=== PATIENT | male | born 1940 | race Caucasian/White ===

== ENCOUNTER 2020-09-07 07:58 | Day surgery (SDC) | payer OTHER ==
[~2020-09-07] VITALS: Ht 182.9 cm; Wt 98.1 kg
[~2020-09-07 07:58] MED LIST: ALOE VERA; ASCO500 PO; ASPI81EC PO; Aspir 8181 MG PO; B Complex1 EAC2 PO; CHOL10002 PO; FAMO20 PO; FLUT.05NI; Fergon240 M1 PO; TRAZ100 PO
== END 2020-09-07 09:59 | disposition home or self-care (01) ==
LOC: ORSCSDS 07:58
PROVIDERS: Internal Medicine Gastroenterology
PROC: 0DB58ZX Excision of Esophagus, Via Natural or Artificial Opening Endoscopic, Diagnostic (ICD-10-PCS; principal; 2020-09-07 09:15)
PROC: 0DB78ZX Excision of Stomach, Pylorus, Via Natural or Artificial Opening Endoscopic, Diagnostic (ICD-10-PCS; principal; 2020-09-07 09:15)
PROC: 0D758ZZ Dilation of Esophagus, Via Natural or Artificial Opening Endoscopic (ICD-10-PCS; principal; 2020-09-07 09:15)
DX: R13.10 Dysphagia, unspecified (principal); K21.9 Gastro-esophageal reflux disease without esophagitis; K22.10 Ulcer of esophagus without bleeding; K44.9 Diaphragmatic hernia without obstruction or gangrene; K22.2 Esophageal obstruction; K26.9 Duodenal ulcer, unspecified as acute or chronic, without hemorrhage or perforation; K20.80 Other esophagitis without bleeding; Z87.891 Personal history of nicotine dependence; Z79.899 Other long term (current) drug therapy; Z79.82 Long term (current) use of aspirin
CPT/HCPCS: 88305; 88342; C1726; J2704; J7120

== ENCOUNTER 2020-12-26 15:07 | Inpatient (IN) | payer OTHER ==
[~2020-12-26] VITALS: Ht 182.9 cm; Wt 95.2 kg
[2020-12-26 16:29] LABS: BASOPHILS ABSOLUTE AUTO 0.05 K/mm3 (0.00-0.23); BASOPHILS PERCENT AUTO 0 % (0-2); EOSINOPHILS ABSOLUTE AUTO 0.01 K/mm3 (0.00-0.68); EOSINOPHILS PERCENT AUTO 0 % (0-6); Hematocrit 44.2 % (37.0-53.0); Hemoglobin 14.6 g/dL (13.5-17.5); IMMATURE GRAN ABSOLUTE AUTO 0.47 K/mm3 (0.00-0.10); IMMATURE GRAN PERCENT AUTO 2 % (0-1); LYMPHOCYTES ABSOLUTE AUTO 0.86 K/mm3 (0.84-5.20); LYMPHOCYTES PERCENT AUTO 3 % (21-46); MONOCYTES ABSOLUTE AUTO 1.95 K/mm3 (0.16-1.47); MONOCYTES PERCENT AUTO 8 % (4-13); Mean Corpuscular HGB 31.5 pg (26.0-34.0); Mean Corpuscular Volume 96 fL (80-100); Mean Platelet Volume 10.4 fL (9.1-12.4); NEUTROPHILS ABSOLUTE AUTO 21.74 K/mm3 (1.96-9.15); NEUTROPHILS PERCENT AUTO 87 % (41-73); Platelet Count 160 K/mm3 (150-400); RDW Standard Deviation 49.3 fL (35.1-46.3); Red Blood Cell Count 4.63 M/mm3 (4.30-5.90); White Blood Cell Count 25.08 K/mm3 (4.00-11.30)
[2020-12-26 17:01] LABS: Albumin, Blood 2.9 g/dL (3.4-5.0); Albumin/Globulin Ratio 0.7 (0.8-1.8); Bun/Creatinine Ratio 12.2 (12.0-20.0); Calcium, Blood 8.8 mg/dL (8.5-10.1); Creatinine, Blood 1.39 mg/dL (0.60-1.20); Globulin, Blood 4.3 g/dL (2.2-4.0); Potassium, Blood 4.6 mmol/L (3.5-5.5); Total Protein, Blood 7.2 g/dL (6.4-8.2)
--- NOTE | 2020-12-27 04:08 | NUR ---
SHIFT SUMMARY ER ADMIT THIS SHIFT WITH CHOLECYSTITIS/PANCREATITIS. PT REPORTED MINIMAL ABD PAIN UPON ARRIVAL TO UNIT. ABD WAS TENDER TO TOUCH. DENIES N/V AND WAS MADE NPO. IVF + ABX PER ORDERS. USING URINAL TO VOID AT BEDSIDE. HAS RESTED WELL. CALL LIGHT WITHIN REACH.
[2020-12-27 06:41] LABS: BASOPHILS ABSOLUTE AUTO 0.04 K/mm3 (0.00-0.23); BASOPHILS PERCENT AUTO 0 % (0-2); EOSINOPHILS ABSOLUTE AUTO 0.05 K/mm3 (0.00-0.68); EOSINOPHILS PERCENT AUTO 0 % (0-6); Hematocrit 38.5 % (37.0-53.0); Hemoglobin 12.9 g/dL (13.5-17.5); IMMATURE GRAN ABSOLUTE AUTO 0.19 K/mm3 (0.00-0.10); IMMATURE GRAN PERCENT AUTO 1 % (0-1); LYMPHOCYTES ABSOLUTE AUTO 0.76 K/mm3 (0.84-5.20); LYMPHOCYTES PERCENT AUTO 4 % (21-46); MONOCYTES ABSOLUTE AUTO 1.56 K/mm3 (0.16-1.47); MONOCYTES PERCENT AUTO 8 % (4-13); Mean Corpuscular HGB 31.5 pg (26.0-34.0); Mean Corpuscular HGB Conc 33.5 g/dL (31.5-36.5); Mean Corpuscular Volume 94 fL (80-100); Mean Platelet Volume 10.4 fL (9.1-12.4); NEUTROPHILS ABSOLUTE AUTO 18.13 K/mm3 (1.96-9.15); NEUTROPHILS PERCENT AUTO 88 % (41-73); Platelet Count 141 K/mm3 (150-400); RDW Coefficient Variation 14.1 % (11.7-14.2); RDW Standard Deviation 48.7 fL (35.1-46.3); Red Blood Cell Count 4.09 M/mm3 (4.30-5.90); White Blood Cell Count 20.73 K/mm3 (4.00-11.30)
[2020-12-27 06:59] LABS: Albumin, Blood 2.2 g/dL (3.4-5.0); Albumin/Globulin Ratio 0.6 (0.8-1.8); Bun/Creatinine Ratio 12.8 (12.0-20.0); Calcium, Blood 7.9 mg/dL (8.5-10.1); Creatinine, Blood 1.41 mg/dL (0.60-1.20); Globulin, Blood 3.9 g/dL (2.2-4.0); Potassium, Blood 4.3 mmol/L (3.5-5.5); Total Protein, Blood 6.1 g/dL (6.4-8.2)
--- NOTE | 2020-12-27 17:22 | NUR ---
IMAGING PT RECIEVED AN ECHO @ BEDSIDE. PT CURRENTLY BEING TRANSFERED TO IMAGING FOR CHEST XRAY VIA [facility].
--- NOTE | 2020-12-27 17:23 | NUR ---
SHIFT SUMMARY PT HAS BEEN A&O X4 AND IN PLEASENT MOOD T/O SHIFT. PT HAS BEEN SUFFERING FROM EXERTIONAL SOB T/O SHIFT, DENIED CHEST PAIN, TIGHTNESS, OR TINGLING. PT HAS BEEN RELAXING IN BED AND MAKING PHONE CALLS T/O DAY HOURS. CONSULT FOR [facility] PROVIDER COMPLETED, NEW ORDERS RECIEVED. COVID TEST, ECHO, CHEST XR COMPLETED.
[2020-12-27 17:29] LABS: SARS-Cov-2 (COVID-19) PCR, MMC NEGATIVE (NEGATIVE)
--- NOTE | 2020-12-28 04:19 | NUR ---
SHIFT SUMMARY PT RESTED WELL T/O SHIFT. PT CONT TO DENY THE NEED FOR PAIN MEDICATIONS. NPO SINCE MIDNIGHT. IVF INFUSING PER ORDERS. USING URINAL TO VOID. PT WAS FEBRILE AT START OF SHIFT, BUT TEMP HAS TRENDED DOWN. ENCOURAGING I/S USE + COUGH + DEEP BREATHING. TELE IN PLACE. USES CALL LIGHT APPROPRIATELY.
[2020-12-28 04:33] LABS: BASOPHILS ABSOLUTE AUTO 0.03 K/mm3 (0.00-0.23); BASOPHILS PERCENT AUTO 0 % (0-2); EOSINOPHILS ABSOLUTE AUTO 0.02 K/mm3 (0.00-0.68); EOSINOPHILS PERCENT AUTO 0 % (0-6); Hematocrit 35.3 % (37.0-53.0); IMMATURE GRAN PERCENT AUTO 1 % (0-1); LYMPHOCYTES ABSOLUTE AUTO 0.82 K/mm3 (0.84-5.20); LYMPHOCYTES PERCENT AUTO 5 % (21-46); MONOCYTES ABSOLUTE AUTO 1.44 K/mm3 (0.16-1.47); MONOCYTES PERCENT AUTO 9 % (4-13); Mean Corpuscular HGB 32.3 pg (26.0-34.0); Mean Corpuscular Volume 95 fL (80-100); Mean Platelet Volume 10.3 fL (9.1-12.4); NEUTROPHILS ABSOLUTE AUTO 14.36 K/mm3 (1.96-9.15); NEUTROPHILS PERCENT AUTO 85 % (41-73); Platelet Count 140 K/mm3 (150-400); RDW Coefficient Variation 14.2 % (11.7-14.2); RDW Standard Deviation 50.1 fL (35.1-46.3); Red Blood Cell Count 3.72 M/mm3 (4.30-5.90); White Blood Cell Count 16.87 K/mm3 (4.00-11.30)
[2020-12-28 04:55] LABS: Albumin, Blood 2.1 g/dL (3.4-5.0); Albumin/Globulin Ratio 0.5 (0.8-1.8); Bilirubin, Total 2.4 mg/dL (0.1-1.0); Bun/Creatinine Ratio 13.8 (12.0-20.0); Calcium, Blood 7.9 mg/dL (8.5-10.1); Creatinine, Blood 1.23 mg/dL (0.60-1.20); Globulin, Blood 3.9 g/dL (2.2-4.0); Potassium, Blood 3.8 mmol/L (3.5-5.5)
--- NOTE | 2020-12-28 15:13 | NUR ---
TRANSFER TO DAY SURG PT A&O X4. PT PRE SURG PACKET COMPLETE. 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
--- NOTE | 2020-12-28 16:59 | NUR ---
SHIFT SUMMARY PT A&O X4 AND IN PLEASENT MOOD THROUGHOUT SHIFT. PT C/O RUQ PAIN T/O MORNING HOURS OF SHIFT, MEDICATED PER EMAR. RESTING IN BED IN BETWEEN. NPO BEFORE TRANSFER TO SURG @ 1515. TELE SR @ 79. AWAITING PT TRANSFER BACK TO UNIT.
--- NOTE | 2020-12-28 17:15 | NUR ---
ADMIT: 12/26/20 DISCHARGE: TBD DX: CHOLECYSITIS CC: Shayna SANTANA NEXT OF KIN/CONTACT: KERRY CORREIA, - [phone] DME: NONE CCM: NONE HOME HEALTH PRIOR TO ADMIT: NONE Per chart review with Dr. Centeno this am, pt. likely to have lap lisa today. Echocardiogram completed this am. Pt. could potentially discharge within 24-48 hours. Plan to contact patient's tomorrow to provide updates and discuss discharge planning. No anticipated needs at this time other than F/U with PCP and specialist as indicated.
--- NOTE | 2020-12-28 18:45 | NUR ---
POST-OP REPORT RECIEVED MARISOL PROVIDED POST OP REPORT. AWAITING PT ARRIVAL TO UNIT.
[2020-12-29 04:56] LABS: BASOPHILS ABSOLUTE AUTO 0.01 K/mm3 (0.00-0.23); BASOPHILS PERCENT AUTO 0 % (0-2); EOSINOPHILS PERCENT AUTO 0 % (0-6); Hematocrit 34.3 % (37.0-53.0); Hemoglobin 11.4 g/dL (13.5-17.5); IMMATURE GRAN ABSOLUTE AUTO 0.07 K/mm3 (0.00-0.10); IMMATURE GRAN PERCENT AUTO 1 % (0-1); LYMPHOCYTES PERCENT AUTO 3 % (21-46); MONOCYTES ABSOLUTE AUTO 0.29 K/mm3 (0.16-1.47); MONOCYTES PERCENT AUTO 3 % (4-13); Mean Corpuscular HGB 31.6 pg (26.0-34.0); Mean Corpuscular HGB Conc 33.2 g/dL (31.5-36.5); Mean Corpuscular Volume 95 fL (80-100); Mean Platelet Volume 10.4 fL (9.1-12.4); NEUTROPHILS ABSOLUTE AUTO 8.61 K/mm3 (1.96-9.15); NEUTROPHILS PERCENT AUTO 93 % (41-73); Platelet Count 158 K/mm3 (150-400); RDW Standard Deviation 49.1 fL (35.1-46.3); Red Blood Cell Count 3.61 M/mm3 (4.30-5.90); White Blood Cell Count 9.28 K/mm3 (4.00-11.30)
[2020-12-29 05:38] LABS: Alanine Aminotransfer (ALT/SGP 39 U/L (12-78); Albumin, Blood 1.8 g/dL (3.4-5.0); Albumin/Globulin Ratio 0.4 (0.8-1.8); Alk Phos 138 U/L (50-136); Anion Gap 6 mmol/L (6-16); Aspartate Aminotrans (AST/SGOT 30 U/L (12-37); Bilirubin, Total 1.8 mg/dL (0.1-1.0); Blood Urea Nitrogen 20 mg/dL (8-24); Bun/Creatinine Ratio 17.1 (12.0-20.0); CO2, Blood 26 mmol/L (21-32); Calcium, Blood 8.3 mg/dL (8.5-10.1); Chloride, Blood 107 mmol/L (98-108); Creatinine, Blood 1.17 mg/dL (0.60-1.20); Globulin, Blood 4.1 g/dL (2.2-4.0); Glomerular Filtration Rate >60 (60-); Glucose, Blood 134 mg/dL (70-99); Potassium, Blood 4.3 mmol/L (3.5-5.5); Sodium, Blood 139 mmol/L (136-145); Total Protein, Blood 5.9 g/dL (6.4-8.2)
--- NOTE | 2020-12-29 17:16 | NUR ---
SUMMARY: PT IS POD1 LAP DENEEN, A/O, VSS. NOEL REG DIET WITHOUT N/V. INDEP IN ROOM, TELE STABLE, SURGICAL SITES WNL. MINIMAL OUTPUT FROM EMILY, MINIMAL PAIN. NO ACUTE CONCERNS.
[2020-12-30 05:03] LABS: BASOPHILS ABSOLUTE AUTO 0.02 K/mm3 (0.00-0.23); BASOPHILS PERCENT AUTO 0 % (0-2); EOSINOPHILS ABSOLUTE AUTO 0.02 K/mm3 (0.00-0.68); EOSINOPHILS PERCENT AUTO 0 % (0-6); Hematocrit 32.6 % (37.0-53.0); Hemoglobin 11.1 g/dL (13.5-17.5); IMMATURE GRAN PERCENT AUTO 1 % (0-1); LYMPHOCYTES ABSOLUTE AUTO 1.09 K/mm3 (0.84-5.20); LYMPHOCYTES PERCENT AUTO 10 % (21-46); MONOCYTES ABSOLUTE AUTO 0.83 K/mm3 (0.16-1.47); MONOCYTES PERCENT AUTO 7 % (4-13); Mean Corpuscular HGB 31.8 pg (26.0-34.0); Mean Corpuscular Volume 93 fL (80-100); NEUTROPHILS ABSOLUTE AUTO 9.12 K/mm3 (1.96-9.15); NEUTROPHILS PERCENT AUTO 82 % (41-73); Platelet Count 186 K/mm3 (150-400); RDW Coefficient Variation 14.2 % (11.7-14.2); RDW Standard Deviation 48.3 fL (35.1-46.3); Red Blood Cell Count 3.49 M/mm3 (4.30-5.90); White Blood Cell Count 11.18 K/mm3 (4.00-11.30)
[2020-12-30 06:07] LABS: Albumin, Blood 1.9 g/dL (3.4-5.0); Albumin/Globulin Ratio 0.5 (0.8-1.8); Bilirubin, Total 0.7 mg/dL (0.1-1.0); Bun/Creatinine Ratio 17.6 (12.0-20.0); Calcium, Blood 8.1 mg/dL (8.5-10.1); Creatinine, Blood 1.25 mg/dL (0.60-1.20); Globulin, Blood 3.9 g/dL (2.2-4.0); Potassium, Blood 3.7 mmol/L (3.5-5.5); Total Protein, Blood 5.8 g/dL (6.4-8.2)
--- NOTE | 2020-12-30 06:42 | NUR ---
SUMMARY PT SLEPT WELL TONIGHT WITH 1 PO PAIN MED DOSE. PT PLANNING FOR DISCHARGE HOME TODAY.
--- NOTE | 2020-12-30 11:03 | NUR ---
Update 12/30/20: Pt. appropriate for discharge. Scheduled for hospital F/U with PCP Dr. Rosa on 01/04/21 at 2 PM. Pulmonology referral ordered and they will contact pt. to schedule. Pt. also advised that he will need a F/U with Dr. Ogden. Patient's will be providing transportation home and picking up medications. No further assistance needed.
--- NOTE | 2020-12-30 11:22 | NUR ---
INSTRUCTED PATIENT ON MDI USE WITH SPACER, PATIENT DEMONSTRATED UNDERSTANDING.
[2020-12-30] MEDS ORDERED: ROXICODONE5 MG PO (11:30)
[2020-12-30] MEDS ORDERED: PROAIR RESPICL90 MCG INH (11:34)
--- NOTE | 2020-12-30 12:34 | NUR ---
DISCHARGE: PACKET PRINTED AND PT EDUCATED. GIVEN SCRIPTS. MEDS FAXED TO [facility]. PT LEFT UNIT VIA WHEELCHAIR AT ABOUT 1200 WITH CHIQUI DE LEON
== END 2020-12-30 11:50 | disposition home or self-care (01) | DRG 417 ==
LOC: ER 15:07 → SURS 20:58
PROVIDERS: Family Medicine; Physician Assistant; ADMIT Surgery
PROC: BF532Z0 Other Imaging of Gallbladder and Bile Ducts using Fluorescing Agent, Intraoperative (ICD-10-PCS; 2020-12-28)
PROC: 0FT44ZZ Resection of Gallbladder, Percutaneous Endoscopic Approach (ICD-10-PCS; principal; 2020-12-28 12:00)
DX: K80.00 Calculus of gallbladder with acute cholecystitis without obstruction (principal); K85.10 Biliary acute pancreatitis without necrosis or infection; I47.1 Supraventricular tachycardia; J84.9 Interstitial pulmonary disease, unspecified; Z20.822 Contact with and (suspected) exposure to COVID-19; K82.A1 Gangrene of gallbladder in cholecystitis; E78.00 Pure hypercholesterolemia, unspecified; E78.5 Hyperlipidemia, unspecified; K21.9 Gastro-esophageal reflux disease without esophagitis; N18.9 Chronic kidney disease, unspecified; N40.0 Benign prostatic hyperplasia without lower urinary tract symptoms; Z88.2 Allergy status to sulfonamides; Z90.89 Acquired absence of other organs; Z98.890 Other specified postprocedural states; Z87.891 Personal history of nicotine dependence; Z86.010 Personal history of colon polyps; Z79.82 Long term (current) use of aspirin; Z79.899 Other long term (current) drug therapy
CPT/HCPCS: 36415; 71046; 71250; 74177; 74300; 76705; 80053; 83690; 83880; 84484; 85025; 88304; 93005; 93010; 93306; 94640; 94760; 96365-59; 99285-25; A9270; C1894; G0378; J1100; J1170; J2405; J2543; J2704; J3010; J7120; Q9967; U0004

== ENCOUNTER 2021-01-18 06:59 | Day surgery (SDC) | payer OTHER ==
[~2021-01-18] VITALS: Ht 182.9 cm; Wt 95.0 kg
[~2021-01-18 06:59] MED LIST changes: +PROAIR RESPICL90 MCG INH; +ROXICODONE5 MG PO
[2021-01-18] MEDS ORDERED: MULTI-VITAMIN1 EAC2 PO (07:33)
[2021-01-18] MEDS ORDERED: OMEP20ER PO (07:33)
[2021-01-18] MEDS ORDERED: VIT1CAPS12 PO (07:33)
[2021-01-18] MEDS ORDERED: MELA3 (07:34)
[2021-01-18] MEDS ORDERED: SYMBICORT 160-4.6 GM IH (07:37)
--- NOTE | 2021-01-18 10:39 | NUR ---
PT TO IMAGING FOR CHEST XRAY. VSS. NADN.
--- NOTE | 2021-01-18 10:55 | NUR ---
PT BACK FROM IMAGING. PT AMBULATES TO RESTROOM WITHOUT DIFF. NADN. VSS.
--- NOTE | 2021-01-18 13:50 | NUR ---
PT RESTING COMFORTABLY. VSS. NADN. PT VERBALIZES UNDERSTANDING WRITTEN AND VERBAL ORDERS. PT DENIES QUESTIONS OR CONCERNS. PT L CHEST WALL REMAINS CLEAR. NO BLEEDING NOTED.
--- NOTE | 2021-01-18 14:00 | NUR ---
PT ANCEF 1 GRAM IV FINISHED INFUSING. IV DC'D. CATH INTACT. PRESSURE DSG IN PLACE. LEFT CHEST WALL REMAINS CLEAR. PT DRESSES SELF WITHOUT DIFF. PT WILL BE DC'D TO HOME VIA WC BY S/O
== END 2021-01-18 14:44 | disposition home or self-care (01) ==
LOC: MHTC 06:59
DX: I49.5 Sick sinus syndrome (principal); I25.10 Atherosclerotic heart disease of native coronary artery without angina pectoris; E78.5 Hyperlipidemia, unspecified; N18.9 Chronic kidney disease, unspecified; I45.2 Bifascicular block; I77.819 Aortic ectasia, unspecified site; I70.8 Atherosclerosis of other arteries; J84.9 Interstitial pulmonary disease, unspecified; Z88.2 Allergy status to sulfonamides; Z79.82 Long term (current) use of aspirin
CPT/HCPCS: 33208; 71046; 99152; 99153; C1769; C1785; C1898; J0690; J1580; J1644; J2250; J3010; J7030; J7040; Q9967

== ENCOUNTER 2022-12-24 15:08 | Emergency (ER) | payer OTHER ==
[~2022-12-24] VITALS: Ht 182.9 cm; Wt 97.5 kg
[~2022-12-24 15:08] MED LIST changes: +MELA3; +MULTI-VITAMIN1 EAC2 PO; +OMEP20ER PO; +SYMBICORT 160-4.6 GM IH; +VIT1CAPS12 PO
[2022-12-24 15:19] VITALS: BP 145/65
== END 2022-12-24 16:45 | disposition left against medical advice (07) ==
LOC: ER 15:08
DX: R09.89 Other specified symptoms and signs involving the circulatory and respiratory systems (principal); Z88.2 Allergy status to sulfonamides; Z79.82 Long term (current) use of aspirin; Z87.891 Personal history of nicotine dependence; Z53.21 Procedure and treatment not carried out due to patient leaving prior to being seen by health care provider
CPT/HCPCS: 99281

== ENCOUNTER 2024-08-18 06:08 | Day surgery (SDC) | payer OTHER ==
[~2024-08-18] VITALS: Ht 182.9 cm; Wt 98.5 kg
[~2024-08-18 06:08] MED LIST changes: +Balanced Salt Epinephrine Irrigation Solution 500 mL IR SCH; +Diazepam 2 MG Tab ONE; +Diazepam 2 MG Tab PO PRN; +Diazepam 5 MG Tab ONE; +Lidocaine HCl/Pf 1% 5 ML VIAL XX SCH; +Moxifloxacin HCL 0.5 MG/0.1 ML 0.4MLSYR RIGHTEYE SCH; +Ondansetron 4 MG SoluTab MM PRN; +PHENYLEPHRINE\\TROPICAMIDE\\TETRACAINE OPHTHALMIC DILATING SOLN RIGHTEYE PRN; +Povidone-Iodine 450 DROP/30 ML Solution ONE; +Povidone-Iodine 450 DROP/30 ML Solution RIGHTEYE SCH; +Tetracaine HCl/Pf 0.5% Opth Soln 4 ml ONE; +diazePAM 5 MG,diazePAM 2 MG PO SCH
[2024-08-18] MEDS ORDERED: FINA5 PO (06:29)
[2024-08-18] MEDS ORDERED: ROSUVASTATIN CAL5 MG PO (06:29)
[2024-08-18] MEDS ORDERED: TAMSULOSIN HCL0.4 M1 PO (06:30)
--- NOTE | 2024-08-18 06:38 | NUR ---
08/18/24 0638 Yancy Spears CALL LIGHT WITHIN REACH. TETRACAINE IN AT 0627 AND PLEDGETT IN AT 0629. PT STATES HIS ANXIETY LEVEL IS 5/10 PRIOR TO DIAZEPAM. WILL RE-ASSESS IN 30MINS
[2024-08-18] MEDS ORDERED: Lidocaine HCl/Pf 1% 5 ML VIAL ONE (06:48)
[2024-08-18] MEDS ORDERED: Diazepam 2 MG Tab ONE (07:07)
--- NOTE | 2024-08-18 07:37 | NUR ---
08/18/24 0737 Agnieszka Bowens VITALS AT 0735 BP: 146/37 O2: 98% P: 63 10 LITERS OF BLOW BY OXYGEN. PATIENT SHOWING NO S/S OF DISTRESS.
--- NOTE | 2024-08-18 07:53 | NUR ---
08/18/[address] AT BEDSIDE
[2024-08-18 07:56] VITALS: BP 144/69
== END 2024-08-18 08:15 | disposition home or self-care (01) ==
LOC: ORSCSDS 06:08
PROVIDERS: Student in an Organized Health Care Education/Training Program
PROC: 08RJ3JZ Replacement of Right Lens with Synthetic Substitute, Percutaneous Approach (ICD-10-PCS; principal; 2024-08-18 07:30)
DX: E11.36 Type 2 diabetes mellitus with diabetic cataract (principal); H25.813 Combined forms of age-related cataract, bilateral; Z95.0 Presence of cardiac pacemaker; H35.3131 Nonexudative age-related macular degeneration, bilateral, early dry stage; N18.9 Chronic kidney disease, unspecified; K21.9 Gastro-esophageal reflux disease without esophagitis; E78.5 Hyperlipidemia, unspecified; Z79.82 Long term (current) use of aspirin; Z79.899 Other long term (current) drug therapy
CPT/HCPCS: A9270; J2003; V2632

== ENCOUNTER 2024-08-25 08:28 | Day surgery (SDC) | payer OTHER ==
[~2024-08-25] VITALS: Ht 182.9 cm; Wt 98.9 kg
[~2024-08-25 08:28] MED LIST changes: -Diazepam 2 MG Tab ONE; -Diazepam 2 MG Tab PO PRN; -Diazepam 5 MG Tab ONE; +FINA5 PO; +Lidocaine HCl/Pf 1% 5 ML VIAL ONE; +Moxifloxacin HCL 0.5 MG/0.1 ML 0.4MLSYR LEFTEYE SCH; -Moxifloxacin HCL 0.5 MG/0.1 ML 0.4MLSYR RIGHTEYE SCH; +NS 500 ML IV ONE; +PHENYLEPHRINE\\TROPICAMIDE\\TETRACAINE OPHTHALMIC DILATING SOLN LEFTEYE PRN; -PHENYLEPHRINE\\TROPICAMIDE\\TETRACAINE OPHTHALMIC DILATING SOLN RIGHTEYE PRN; +Povidone-Iodine 450 DROP/30 ML Solution LEFTEYE SCH; -Povidone-Iodine 450 DROP/30 ML Solution RIGHTEYE SCH; +ROSUVASTATIN CAL5 MG PO; +TAMSULOSIN HCL0.4 M1 PO; -diazePAM 5 MG,diazePAM 2 MG PO SCH
[2024-08-25] MEDS ORDERED: NAPR500 PO (08:45)
[2024-08-25] MEDS ORDERED: NS 500 ML IV ONE (08:59)
[2024-08-25] MEDS ORDERED: Tetracaine HCl 0.5% Opth Soln 15 ml LEFTEYE ONE (09:52)
[2024-08-25] MEDS ORDERED: Midazolam HCl 1MG / ML 2ML Vial ONE (09:54)
[2024-08-25] MEDS ORDERED: FentaNYL Citrate 50 MCG/ML 2 ML Injection ONE (09:54)
--- NOTE | 2024-08-25 10:15 | NUR ---
08/25/[address] IN TO SPEAK WITH PT
[2024-08-25 10:19] VITALS: BP 127/64
== END 2024-08-25 10:38 | disposition home or self-care (01) ==
LOC: ORSCSDS 08:28
PROVIDERS: Student in an Organized Health Care Education/Training Program
PROC: 08RK3JZ Replacement of Left Lens with Synthetic Substitute, Percutaneous Approach (ICD-10-PCS; principal; 2024-08-25 10:00)
DX: H25.812 Combined forms of age-related cataract, left eye (principal); Z96.1 Presence of intraocular lens; H35.3131 Nonexudative age-related macular degeneration, bilateral, early dry stage; K21.9 Gastro-esophageal reflux disease without esophagitis; J44.9 Chronic obstructive pulmonary disease, unspecified; I47.10 Supraventricular tachycardia, unspecified; N18.9 Chronic kidney disease, unspecified; E78.5 Hyperlipidemia, unspecified; Z95.0 Presence of cardiac pacemaker; Z79.899 Other long term (current) drug therapy
CPT/HCPCS: J2003; J2250; J3010; J7040; V2632